=== PATIENT | male | born 2000 | race Caucasian/White ===

== ENCOUNTER 2019-06-24 23:03 | Emergency (ER) | payer BC, SELFPAY ==
[2019-06-24 23:08] VITALS: BP 129/106; PULSE 97; TEMP 36.7; O2SAT 97
--- NOTE | 2019-06-24 23:16 | ED.GENADUL_ITS ---
Discharge Plan Disposition Patient Disposition: HOME Condition: Stable Discharge Details Chief Complaint: GenMedical Clinical Impression: Constipation ED Provider: Dick Camargo Discharge Instructions Instructions: Constipation (ED) Additional Instructions: try taking colace and milk of magnesia if you have increased bleeding or severe worsening pain return to the emergency department. Otherwise follow up with your primary care provider when you return home if symptoms continue Medical Decision Making 19 yo male with hx of anxiety comes in with complaints of constipation for a week and tonight noticed small specks of blood in the stool. Denies fevers, chills, vomit, travel. He has had some intermittent left lower abdomen discomfort but has no tenderness or disttention on exam. On rectal exam has no hemorrhoids visible, normal rectal tone, does have some hard stool that is not impacted and is brown guiac negative stool with no blood. Given description and constipation suspect this is due to constipation and advised to try colace and milk of mag. Given he has no abdominal tenderness or distention doubt entities such as sbo, diverticulitis, appendicitis or other surgical pathology. Advised to f/u with pcp and return precautions given Differential Diagnosis Differential Diagnosis: constipation, hemorrhoid HPI General Mode of arrival: ambulatory . Date/Time Provider Initiated Documentation: 06/24/19 23:03 . Limitations to Documentation: no limitations . Information obtained by: patient . History of Present Illness 19 year old M p resents to the emergency department with the chief complaint of constipation, described as moderate, Patient started experiencing this week(s) (1) and it has been constant. No relieving factors improve symptom(s), No exacerbating factors reported . Patient did receive the following treatments prior to arrival, none General Stated Complaint: GenMedical RUSSELL: 3 Review of Systems All systems reviewed & are unremarkable except as noted in HPI and below Constitutional Constitutional: Denies chills, Denies fever(s) and Denies weakness Cardiovascular Cardiovascular: Denies chest pain and Denies dyspnea Respiratory Respiratory: Denies cough and Denies dyspnea Gastrointestinal Gastrointestinal: Denies nausea and Denies vomiting Musculoskeletal Musculoskeletal: Denies joint swelling Neurologic Neurologic: Denies weakness Psychiatric Psychiatric: Denies depression Exam Const General: no acute distress Orientation: alert HENMT Head: normal to inspection Ears: external ears normal General nose exam: external nose normal Mouth: moist mucous membranes Eyes General: appearance normal, both eyes and all related structures Neck Neck: normal visual inspection Resp Effort & Inspection: normal respiratory effort and able to speak in complete sentences Cardio Rate: regular rate GI Palpation: soft and nontender Skin General skin exam: no rashes or lesions noted Neuro General: patient alert and patient oriented x3 Extrem General: normal to inspection Psych Mental Status: mental status grossly normal Course Vital Signs Vital signs: Vital Signs Temperature 36.7 C 06/24/19 23:08 Pulse 97 H 06/24/19 23:08 Blood Pressure 129/106 H 06/24/19 23:08 Pulse Oximetry 97 06/24/19 23:08 Temperature 36.7 C 06/24/19 23:08 Temperature Source Oral 06/24/19 23:08 Pulse 97 H 06/24/19 23:08 Blood Pressure 129/106 H 06/24/19 23:08 Blood Pressure Position Sitting 06/24/19 23:08 Pulse Oximetry 97 06/24/19 23:08 Oxygen Delivery Method Room Air 06/24/19 23:08 Oxygen Flow Rate 0 06/24/19 23:08 Pain Level 4 06/24/19 23:08
== END 2019-06-24 23:20 | disposition home or self-care (01) ==
LOC: ER 23:42
PROVIDERS: Emergency Provider Emergency Medicine
DX: K59.00 Constipation, unspecified (principal)
CPT/HCPCS: 99282

== ENCOUNTER 2019-06-27 16:37 | Emergency (ER) | payer BC, SELFPAY ==
[2019-06-27 16:41] VITALS: BP 143/98; PULSE 111; RESP 21; TEMP 36.5; O2SAT 97
[2019-06-27 16:46] VITALS: RESP 14
--- NOTE | 2019-06-27 16:47 | W.ED.GENAD ---
Discharge Plan Disposition Patient Disposition: HOME Condition: Stable Discharge Details Chief Complaint: Chest Pain Clinical Impression: Shortness of breath Primary Care Provider: None,None ED Provider: Dick Camargo Home Meds and New Rx's Prescriptions: New prednisone 20 mg tablet 60 mg PO DAILY 4 Days Qty: 12 RF: 0 albuterol sulfate 90 mcg/actuation aerosol powdr breath activated 2 inh IH Q4H PRNQty: 1 RF: 0 Discharge Instructions Instructions: Dyspnea (ED) Additional Instructions: if not better within a week follow up with your primary care provider return to the emergency department if you feel more ill, have worsening shortness of breath or pain Medical Decision Making 19 yo male with no history of any chronic medical problems comes in with left sided chest pain and shortness of breath the past 2 weeks but constant the past day. Describes the pain as pleuritic when he takes deep breaths, denies international travel, fevers, cough, rhinorrhea. He appears anxious on exam. He has clear lungs, tachycardia to 110 on exam, no jvd or calf swelling or pain. His wells score is moderate and given this will obtain CTA to eval for pe vs pna. Pain is pleuritic, heart score is 0 so doubt acs. No tearing back pain to suggest dissection and normal vascular exam. NO infectious symptoms to suggest covid19 or influenza. pt remains hd stable, does feel somewhat better after ativan. Labs show mild increased in lactate of 2.3 likely from dehydration. cta shows no pna or pe but has midl bronchial wall thickening likely viral uri. Will start on albuterol and steroids and advised f/u with pcp if symptoms not improving within a week and return precautions given Differential Diagnosis Differential Diagnosis: pneumonia, PE, acs Medical Records Medical records reviewed: Yes I reviewed the patient's medical records. Imaging Data Radiologic Study: Attestation: I personally reviewed and interpreted this imaging study as follows: Imaging: CT Scan Radiologist's impression: IMPRESSION: 1. No evidence of pulmonary embolism. 2. No lung consolidation seen. 3. Suggestion of mild bronchial wall thickening, which could represent bronchial inflammation in the appropriate clinical setting. Lab Data Lab results reviewed: Yes I reviewed the patient's lab results. ECG Data Attestation: I personally reviewed and interpreted this ECG (s) as follows: Prior ECG tracings: not available for review Interpretation: sinus rhythm, rate of 92, pr 86, no acute st t wave ischemic findings HPI General Mode of arrival: ambulatory. Date/Time Provider Initiated Documentation: 06/27/19 16:38. Limitations to Documentation: no limitations. Information obtained by: patient. History of Present Illness 19 year old M presents to the emergency department with the chief complaint of short of breath, described as moderate, Patient started experiencing this day(s) (1) and it has been constant. No relieving factors improve symptom(s), No exacerbating factors reported . Patient did receive the following treatments prior to arrival, none Related Data Home Medications Medication Instructions Recorded Confirmed albuterol sulfate 2 inh IH Q4H PRN #1 each 06/27/19 prednisone 60 mg PO DAILY 4 Days #12 tab 06/27/19 Previous Rx's Medication Instructions Recorded albuterol sulfate 2 inh IH Q4H PRN #1 each 06/27/19 prednisone 60 mg PO DAILY 4 Days #12 tab 06/27/19 Allergies Allergy/AdvReac Type Severity Reaction Status Date / Time No Known Allergies Allergy Unverified 06/27/19 18:37 General Stated Complaint: Chest Pain RUSSELL: 3 Review of Systems All systems reviewed & are unremarkable except as noted in HPI and below Constitutional Constitutional: Denies chills and Denies fever(s) Respiratory Respiratory: Denies cough Gastrointestinal Gastrointestinal: Denies abdominal pain, Denies nausea and Denies vomiting Genitourinary Genitourinary: Denies dysuria Musculoskeletal Musculoskeletal: Denies joint swelling Integumentary/Breasts Skin/Breast: Denies rash Endocrine Endocrine: Denies cold intolerance and Denies heat intolerance [facility] Social History Smoking/Tobacco Use Status: Never Alcohol Intake: never Substance use type: does not use Exam Const General: no acute distress Orientation: alert HENMT Head: normal to inspection Ears: external ears normal General nose exam: external nose normal Mouth: moist mucous membranes Eyes General: appearance normal, both eyes and all related structures Neck Neck: normal visual inspection Resp Effort & Inspection: normal respiratory effort and able to speak in complete sentences Cardio Jugular venous pressure: no JVD Rate: tachycardic Skin General skin exam: no rashes or lesions noted Neuro General: patient alert and patient oriented x3 Extrem General: normal to inspection Psych Mental Status: mental status grossly normal Course Vital Signs Vital signs: Vital Signs Temperature 36.5 C 06/27/19 16:41 Pulse 111 H 06/27/19 16:41 Respiratory Rate 21 06/27/19 16:41 Blood Pressure 143/98 H 06/27/19 16:41 Pulse Oximetry 97 06/27/19 16:41 Temperature 36.5 C 06/27/19 16:41 Temperature Source Oral 06/27/19 16:41 Pulse 111 H 06/27/19 16:41 Respiratory Rate 21 06/27/19 16:41 Blood Pressure 143/98 H 06/27/19 16:41 Blood Pressure Position Sitting 06/27/19 16:41 Pulse Oximetry 97 06/27/19 16:41 Oxygen Delivery Method Room Air 06/27/19 16:41 Oxygen Flow Rate 0 06/27/19 16:41 Pain Level 6 06/27/19 16:41 Lab/Test Results Lab/Test Results: Laboratory Tests Range/Units 06/27/19 16:45 D-Dimer Cancelled
[2019-06-27] MEDS: LORazepam 2 MG/ML VIAL 0.5 MG IVP (17:34)
[2019-06-27] MEDS: Normal Saline 1,000 ML 1000 ML IV (17:35)
[2019-06-27 17:36] VITALS: PULSE 87; RESP 20
[2019-06-27 17:37] LABS: BE (Venous) 5.8 mmol/L (-3-3); HCO3 (Venous) 31 mmol/L (22-28); O2 Sat (Venous) 73 % (70-80); TCO2 (Venous) 27 mmol/L (22-29); pCO2 (Venous) 53 mm/Hg (34-47); pH (Venous) 7.38 (7.35-7.45); pO2 (Venous) 40 mm/Hg (28-44)
[2019-06-27 17:41] LABS: Lactate 2.3 mmol/L (0.6-1.4)
[2019-06-27 17:43] LABS: Abs Immature Grans 0.02 k/cumm (0.0-0.09); Absolute Basophil Count 0.02 k/cumm (0.0-0.2); Absolute Eosinophil Count 0.13 k/cumm (0.0-0.7); Absolute Lymphocyte Count 1.74 k/cumm (1.2-3.4); Absolute Monocyte Count 0.43 k/cumm (0.11-0.7); Absolute Neutrophil Count 5.18 k/cumm (1.2-6.7); Basophils % 0.3; Eosinophils % 1.7; HCT 50.1 % (40.0-50.0); HGB 17.7 g/dL (13.5-17.5); Immature Grans % 0.3 %; Lymphocytes % 23.1; Mean Corp. HGB Concentration 35.3 g/dL (32.0-36.0); Mean Corpuscular Hemoglobin 31.9 pg (27.0-33.0); Mean Corpuscular Volume 90.4 fL (80-95); Mean Platelet Volume 10.7 fL (8.0-11.0); Monocytes % 5.7; Neutrophils % 68.9; Platelet Count 251 x1000/uL (130-400); RBC 5.54 m/cumm (4.50-6.00); RBC Distribution Width 11.6 % (11.8-14.1); White Blood Cell Count 7.52 k/cumm (4.4-10.8)
[2019-06-27 17:58] LABS: ALT 18 U/L (16-63); AST 14 U/L (15-37); Alkaline Phosphatase 64 U/L (46-116); Anion Gap 9.7 mmol/L (3-11); BUN 12 mg/dL (7-18); Bilirubin, Total 1.2 mg/dL (0.2-1.0); CO2 29.3 mmol/L (21.0-32.0); CREATININE 1.17 mg/dL (0.70-1.30); Chloride 102 mmol/L (98-107); Glucose 109 mg/dL (74-106); Potassium 3.8 mmol/L (3.5-5.1); Sodium 141 mmol/L (136-145); Total Protein 8.2 g/dL (6.4-8.2)
[2019-06-27] MEDS: Omnipaque 350 MG/ML 100 ML BTL IJ (17:58)
[2019-06-27 17:59] LABS: Troponin I < 0.05 ng/Ml (<0.06)
[2019-06-27] MEDS: Normal Saline - Diluent 50 ML VIAL IV (17:59)
--- NOTE | 2019-06-27 18:00 | DI.CT_ITS ---
EXAM: CT CHEST PE CTA CLINICAL HISTORY: tachycardia, chest pain and shortness of breath TECHNIQUE: COMPARISON: No exams were available for comparison FINDINGS: CT angiography of the chest was performed with bolus infusion of 60 cc of Omnipaque 350. Images obta ined through the upper abdomen show unremarkable appearance of visualized portions of liver, spleen, adrenals, left kidney, and pancreas. The lungs are clear. No consolidation. No pleural effusion. No evidence of pulmonary embolic disea se. Thoracic aorta and major branches appear intact, no aneurysm or dissection. No mediastinal or hilar adenopathy. Tracheobronchial tree appears intact. IMPRESSION: Negative CT angiography chest
--- NOTE | 2019-06-27 18:53 | DI.VRAD_ITS ---
PROCEDURE INFORMATION: Exam: CT Angiography Chest With Contrast Exam date and time: 06/27/2019 4:47 PM Age: 19 years old Clinical indication: Other: Tachycardia, chest pain and shortness of breath TECHNIQUE: Imaging protocol: Computed tomographic angiography of the chest with intravenous contrast. 3D rendering: MIP and/or 3D reconstructed images were created by the technologist. Radiation optimization: All CT scans at this facility use at least one of these dose optimization techniques: automated exposure control; mA and/or kV adjustment per patient size (includes targeted exams where dose is matched to clinical indication); or iterative reconstruction. Contrast material: OMNIPAQUE 350; Contrast volume: 60 ml; Contrast route: IV; COMPARISON: No relevant prior studies available. FINDINGS: Limitations: Streak artifact from dense contrast material does slightly limit the sensitivity of this examination. Pulmonary arteries: Normal. No pulmonary emboli. Aorta: Unremarkable. No aortic aneurysm. No aortic dissection. Lungs: No consolidation. No masses. The bronchial walker are slightly prominent in appearance, which could represent wall thickening. Pleural space: Unremarkable. No pneumothorax. No pleural effusion. Heart: Unremarkable. No cardiomegaly. No pericardial effusion. Lymph nodes: Unremarkable. No enlarged lymph nodes. Bones/joints: Unremarkable. No acute fracture. Soft tissues: Unremarkable. IMPRESSION: 1. No evidence of pulmonary embolism. 2. No lung consolidation seen. 3. Suggestion of mild bronchial wall thickening, which could represent bronchial inflammation in the appropriate clinical setting. Dictated and Authenticated by: Alda Sheehan MD. Ordering:ARIEL Jennings MD
[2019-06-27 19:00] VITALS: BP 131/77; PULSE 96; RESP 20; TEMP 36.5; O2SAT 97
== END 2019-06-27 19:14 | disposition home or self-care (01) ==
PROVIDERS: Emergency Provider Emergency Medicine
DX: R06.02 Shortness of breath (principal); R07.89 Other chest pain; R74.8 Abnormal levels of other serum enzymes
CPT/HCPCS: 36415; 71275; 80053; 82805; 93005; 96361; 96374; 99285; 83605; 84484; 85025; 85379; 93010; 99284; J2060; J3490

== ENCOUNTER 2019-07-01 03:29 | Emergency (ER) | payer BC, SELFPAY ==
[2019-07-01 03:33] VITALS: BP 112/84; PULSE 89; RESP 18; TEMP 36.7; O2SAT 99
--- NOTE | 2019-07-01 03:44 | W.ED.GENAD ---
Discharge Plan Disposition Patient Disposition: HOME Condition: Good Discharge Details Chief Complaint: GenMedical Clinical Impression: Encounter for medical screening examination, Strain of right groin Primary Care Provider: None,None ED Provider: Eugene Mayen Home Meds and New Rx's Prescriptions: No Action albuterol sulfate 90 mcg/actuation aerosol powdr breath activated 2 inh IH Q4H PRNQty: 1 RF: 0 Discharge Instructions Instructions: Inguinal Hernia (ED) Additional Instructions: At this time you have no evidence of hernia. However please monitor closely for the signs and symptoms that we discussed, including continued bulge, redness, pain, or other symptoms. Please take the [id number] stool softeners like Colace as we discussed. Drink plenty of fluids. If you notice any worsening of your symptoms, or any new symptoms such as vomiting, diarrhea, fever, chills, shortness of breath, chest pain, numbness, weakness, or fainting , please return immediately to the emergency department for reevaluation. Please follow up with your primary care provider as soon as possible for reassessment and reevaluation. As always, it was a pleasure participating in your medical care today. Medical Decision Making This is a pleasant 19-year-old male with no past medical history who presents for evaluation of potential right-sided hernia. He had a hard bowel movement and noticed a small bulge, and came in to be evaluated. Currently denies any pain whatsoever, no current masses stating that it resolved on its own. Physical exam demonstrates no evidence of inguinal femoral or scrotal hernia. No testicular tenderness, normal cremasteric reflex bilaterally. No other abnormalities on exam. Signs and symptoms are clinically consistent with mild groin strain. Clinically inconsistent with hernia. No indication for imaging at this time, although this was offered to the patient and he refused. This time I do feel that patient is suffering from a mild right-sided groin strain, recommend Colace at home, foods high in fiber, plenty of fluids. Discussed red flags which to return. I have extensively reviewed the treatment plan and discharge instructions with the patient. I have addressed all patient concerns at this time. The patient was made aware of what symptoms to monitor for that would warrant a return to the emergency department. Discussed the plan with the patient, they demonstrate verbal understanding and agreement with our assessment and plan at this time. HPI General Date/Time Provider Initiated Documentation: 07/01/19 03:31. HPI Narrative: 19-year-old male with no significant past medical history who presents today for evaluation of right groin pain. Patient states that he was having a hard bowel movement earlier today, which he has had a few of as of late, at the time of that bowel movement he noticed a small pain and questionable mild bulge in the right groin. This resolved on its own, moments later, he has had no abdominal pain nausea vomiting or diarrhea since then. He states that he wanted to get checked out out of concern for potential hernia. He denies any testicular or scrotal or genital pain. No other complaints at this time. No other modifying factors. Related Data Home Medications Medication Instructions Recorded Confirmed albuterol sulfate 2 inh IH Q4H PRN #1 each 06/27/19 Previous Rx's Medication Instructions Recorded albuterol sulfate 2 inh IH Q4H PRN #1 each 06/27/19 Allergies Allergy/AdvReac Type Severity Reaction Status Date / Time No Known Allergies Allergy Unverified 06/27/19 18:37 General Stated Complaint: GenMedical RUSSELL: 4 Review of Systems All systems reviewed & are unremarkable except as noted in HPI and below PFSH Social History Smoking/Tobacco Use Status: Never Alcohol Intake: never Substance use type: does not use Exam Narrative Exam Narrative: 1.Const: Well-nourished, Well-developed, appearing stated age 2.Eyes: PERRL, no conjunctival injection, and symmetrical lids. 3.ENT: Atraumatic external nose and ears. Moist MM. Neck: Symmetric, trachea midline, No thyromegaly. 4.CVS: +S1/S2, No murmurs or gallops. Peripheral pulses 2+ and equal in all extremities. Brisk capillary refill in all extremities. 5.RESP: Unlabored respiratory effort. Clear to auscultation bilaterally. No wheezes rales or rhonchi 6.GI: Soft, Nontender/Nondistended, No hepatosplenomegaly. No guarding or rebound. No inguinal bulge, swelling, or signs of hernia. Genital exam demonstrates normal bilateral testicles, normal cremasteric reflex. No pain or tenderness. No bulge, or mass. No penile tenderness or abnormality. Genital exam was performed with nurse at bedside. 7.MSK: Normocephalic/Atraumatic, Extremities w/o deformity or ttp No cyanosis or clubbing, Normal movement of all extremities 8.Skin: Warm, Dry. No rashes or lesions. 9.Neuro: operations support specialist II-XII grossly intact. Sensation grossly intact, no focal neurologic deficits. 10.Psych: (AAO) x3. Appropriate mood and affect Course Vital Signs Vital signs: Vital Signs Temperature 36.7 C 07/01/19 03:33 Pulse 89 07/01/19 03:33 Respiratory Rate 18 07/01/19 03:33 Blood Pressure 112/84 07/01/19 03:33 Pulse Oximetry 99 07/01/19 03:33 Temperature 36.7 C 07/01/19 03:33 Temperature Source Temporal Artery Scan 07/01/19 03:33 Pulse 89 07/01/19 03:33 Respiratory Rate 18 07/01/19 03:33 Respiratory Effort 07/01/19 03:37 Blood Pressure 112/84 07/01/19 03:33 Blood Pressure Position Sitting 07/01/19 03:33 Pulse Oximetry 99 07/01/19 03:33 Oxygen Delivery Method Room Air 07/01/19 03:33 Oxygen Flow Rate 0 07/01/19 03:33 Pain Level 3 07/01/19 03:33
== END 2019-07-01 03:45 | disposition home or self-care (01) ==
PROVIDERS: Emergency Provider Student in an Organized Health Care Education/Training Program
DX: S76.811A Strain of other specified muscles, fascia and tendons at thigh level, right thigh, initial encounter (principal); X50.9XXA Other and unspecified overexertion or strenuous movements or postures, initial encounter
CPT/HCPCS: 99282

== ENCOUNTER 2019-07-08 12:41 | Outpatient (CLI) | payer BC, SELFPAY | END 2019-07-08 13:01 | PROVIDERS: Visit Provider Family Medicine | DX: R07.89 Other chest pain (principal) | CPT/HCPCS: 93005; 93010 ==

== ENCOUNTER 2019-07-13 00:51 | Outpatient (CLI) | payer BC, SELFPAY ==
--- NOTE | 2019-07-13 07:41 | DI.US_ITS ---
APPROVED REPORT EXAM: Comprehensive 2D, Doppler, and color-flow Echocardiogram Patient Location: Out-Patient Early Childhood Associate: Kelley Long RDCS (AE) Indications: Chest pain Conclusion Left Ventricle : The left ventricle is normal size. The left ventricular systolic function is normal. The left ventricular ejection fraction is within the normal range. There is normal left ventricular wall thickness. There is normal LV segmental wall motion. The left ventricular diastolic function is normal. LVEF is 60-65%. Right Ventricle : The right ventricle is normal size. The right ventricular systolic function is norm al. Estimated RVSP is 18 mmHg. Atria : The left atrium size is normal. The right atrium size is normal. Valves: There are no hemodynamically significant valvular lesions. Great Vessels : IVC is normal in size and collapses >50% with inspiration. There is no prior echocardiogram available for comparison. Wall motion Left Ventricle The left ventricle is normal size. The left ventricular systolic function is normal. The left ventric ular ejection fraction is within the normal range. There is normal left ventricular wall thickness. T here is normal LV segmental wall motion. The left ventricular diastolic function is normal. There is no ventricular septal defect visualized. LVEF is 60-65%. Right Ventricle The right ventricle is normal size. The right ventricular systolic function is normal. Estimated RVSP is 18 mmHg. Atria The left atrium size is normal. The right atrium size is normal. The interatrial septum is intact wit h no evidence for an atrial septal defect. Aortic Valve The aortic valve is normal in structure. Aortic valve is trileaflet. There is no aortic valvular sten osis. No aortic regurgitation is present. Mitral Valve The mitral valve is normal in structure. No evidence of mitral valve stenosis. Trace mitral regurgita tion. Tricuspid Valve The tricuspid valve is normal in structure. There is no tricuspid valve stenosis. Mild tricuspid regu rgitation. Pulmonic Valve The pulmonary valve is normal in structure. There is no pulmonic valvular stenosis. Trace to mild pul nathaniel regurgitation. Great Vessels The aortic root is normal in size. Ascending aorta is not well visualized. Aortic arch is not well vi sualized. IVC is normal in size and collapses >50% with inspiration. Pericardium There is no pericardial effusion. There is no pleural effusion. 2D Dimensions IVSD d PLAX 0.55 cm M: 0.6-1.2 LV Vol A2C d MOD 81.2 mL LVPW d PLAX 0.63 cm M: 0.6 - 1.2 LV Vol A4C d MOD 81.8 mL LVID d PLAX 4.80 cm M: 4.2 - 5.8 LV EF A4C MOD 62.2 % LVDs 2.95 cm M: 2.5 - 4.0 LV EF A2C MOD 60.9 % Ao Root d 2.47 cm M: 3.1 - 3.7 LV EF Biplane MOD 60.0 % LV EF Teichholz 67.8 % LVEF (Parra's) 60.02 % M: 52 - 72 LV Volume 64.41 mL M: 62 - 150 LV Volume Index 36.38 mL/m2 M: 34 - 74 LV Vol Biplane MOD 82.4 mL FS 37.80 % M-Mode TAPSE 2.22 cm (M/F) >1.7 LV Diastology MV E' medial 0.103 (>0.07 m/s) E/A Ratio 2.0 LV E/e MED 9.60 (<14) MV E Vmax 1.00 (0.4-1.3 m/s) MV E' lateral 0.099 (>0.1 m/s) MV A Vmax 0.50 (0.4-1.3 m/s) LV E/e LAT 10.10 (<14) MV E/A Ratio 1.85 MV E/E' medial 9.63 MV E/E' lateral 10.10 Aortic Valve LVOT Area 2.47 cm2 AoV Area Vmax 1.78 cm2 LVOT Vmax 0.71 m/s AoV Area/ BSA (Vmax) 1.00 cm2/m2 LVOT Mean Irineo. 0.45 m/s SERENA Mean Irineo. 1.71 cm2 LVOT Peak Grad 2.0 mmHg SERENA Mean Irineo. Index 0.96 cm2/m2 LVOT Mean Grad 1.0 mmHg LVOT VTI 0.157 m LVOT Diam s 1.75 cm (M/F) 1.5-2.5 AoV Vmax 0.99 (0.5-1.3 m/s) Velocity Ratio 0.71 AoV Mean Irineo. 0.65 m/s AoV Peak Grad 3.9 mmHg LVOT SV 38.85 mL AoV Mean Grad 1.9 (<5 mmHg) AoV VTI 0.198 (0.18-0.25 m) AoV Area VTI 1.96 (2.5-4.5 cm2) AoV Area/ BSA (VTI) 1.11 cm/m2 Mitral Valve MV DT 152 (160-240 msec) MV PHT 44 msec MV Area PHT 4.99 cm2 Pulmonary Valve PV Vmax 0.87 (0.5-1.5 m/s) RVOT Peak Gr. 1.68 mmHg PV Peak Grad 3.0 mmHg RVOT Mean Gr. 0.85 mmHg PV Mean Grad 1.6 mmHg RVOT VTI 0.151 m PV VTI 0.202 m RVOT Vmax 0.65 m/s Tricuspid Valve TR Peak Grad 15.5 mmHg TR Vmax 1.97 m/s RA Pressure 3.00 mmHg RVSP (TR) 18.5 mmHg
== END 2019-07-13 01:11 ==
PROVIDERS: Visit Provider Family Medicine
DX: R07.89 Other chest pain (principal); R06.02 Shortness of breath
CPT/HCPCS: 93306